=== PATIENT | male | born 1955 | race African-American/Black ===

== ENCOUNTER 2023-05-24 11:00 | Emergency (ER) | payer MEDICARE, MEDICAID, SELFPAY ==
--- NOTE | ~2023-05-24 | XR_ITS ---
EXAMINATION: XR chest 2V DATE: 05/24/2023 11:46 INDICATION: One week of cough and fever TECHNIQUE: frontal and lateral views of the chest were obtained. COMPARISON: None FINDINGS: Thin oblique linear band of discoid atelectasis/scarring in the right upper lung zone. No other airsp jorge alberto opacities, pulmonary edema, pleural effusion or pneumothorax. The cardiomediastinal silhouette is normal. IMPRESSION: 1. Linear discoid atelectasis/scarring the right upper lung zone. No other acute cardiopulmonary dise ase. Reviewed, dictated and finalized at location A. IMPRESSION: 1. Linear discoid atelectasis/scarring the right upper lung zone. No other acut e cardiopulmonary disease.
[2023-05-24 11:10] VITALS: BP 133/77; PULSE 73; RESP 20; TEMP 36.5; O2SAT 98
--- NOTE | 2023-05-24 11:10 | ED.URI ---
HPI - URI/Sore Throat General Chief Complaint: Upper Respiratory Infection Stated Complaint: FEVER/CONGESTION/COUGH Time Seen by Provider: 05/24/23 11:40 Source: patient and RN notes reviewed Mode of arrival: ambulatory Limitations: no limitations History of Present Illness HPI Narrative: 67-year-old male presents with concern for cough for 1 week. Caregiver reports he has had nasal congestion and chest congestion. Reports they have given him some [id number] medications without relief MD elicited complaint: fever and cough Related Data Home Medications Medication Instructions Recorded Confirmed clozapine 150 mg disintegrating 150 mg PO DAILY 05/24/23 05/24/23 tablet clozapine 200 mg disintegrating 200 mg PO DAILY 05/24/23 05/24/23 tablet docusate sodium 100 mg capsule 100 mg PO DIRECTED 05/24/23 05/24/23 famotidine 20 mg tablet 20 mg PO DAILY 05/24/23 05/24/23 guanfacine 2 mg tablet,extended 2 mg PO DAILY 05/24/23 05/24/23 release 24 hr oxybutynin chloride 5 mg 5 mg PO DAILY 05/24/23 05/24/23 tablet,extended release 24 hr polyethylene glycol 3350 17 17 g PO DIRECTED 05/24/23 05/24/23 gram/dose oral powder pyrithione zinc 2 % shampoo (DHS 1 applic topical DIRECTED 05/24/23 05/24/23 Zinc) sertraline 100 mg tablet 100 mg PO DIRECTED 05/24/23 05/24/23 simvastatin 40 mg tablet 40 mg PO DAILY 05/24/23 05/24/23 tamsulosin 0.4 mg capsule 0.4 mg PO DIRECTED 05/24/23 05/24/23 topiramate 100 mg tablet 100 mg PO DIRECTED 05/24/23 05/24/23 Allergies Allergy/AdvReac Type Severity Reaction Status Date / Time SELAM Inhibitors Allergy Swelling Verified 05/24/23 11:20 of Lip/Tongue/Throat lisinopril Allergy Swelling Verified 05/24/23 11:20 of Lip/Tongue/Throat Review of Systems Review of Systems: CONSTITUTIONAL: Reports malaise, fever. EYES: Denies visual changes, redness, or discharge. ENT: Reports rhinorrhea, congestion CARDIOVASCULAR: Denies chest pain, palpitations, or edema. RESPIRATORY: Reports cough. Denies dyspnea. GASTROINTESTINAL: Denies abdominal pain, nausea, vomiting, diarrhea SKIN: Denies rash or itching. MUSCULOSKELETAL: Denies myalgia. NEUROLOGIC: Denies headache. All systems reviewed & are unremarkable except as noted in HPI and below PMFSH Comments At time of signature, agree with nursing past medical, surgical, social and family history. There is no relevant family history pertinent to the presenting complaint Exam Narrative: GENERAL: Nontoxic-appearing, well-nourished, and in no acute distress. HEAD: Normocephalic EYES: PERRLA, conjunctivae clear ENT: Nares clear. Mucous membranes moist. TM pearly choi with dull light reflex bilaterally; no tragal tenderness. NECK: Supple. No lymphadenopathy CHEST: Scattered rhonchi, diminished breath sounds equal. No wheezing, rales, or stridor. No respiratory distress, speaks in full sentences. HEART: Regular rate and rhythm. No murmur heard. SKIN: Warm, dry, no rash. NEURO: Alert and oriented x3. PSYCH: Normal mood and affect Course Course Emergency Course: Patient is aware of diagnosis, understands and agrees to treatment plan. Anticipatory guidance given. Patient agrees to follow-up as directed and is aware of reasons to seek care at the emergency department. Portions of this record may have been created with voice recognition software Level of Care: Express Care Visit Vital Signs Vital signs: Reviewed. MDM - URI/Sore Throat MDM Narrative Medical decision making narrative: Differential diagnosis considered: Grimaldo virus, strep pharyngitis, allergic rhinitis, upper respiratory tract infection, sinusitis, rhinosinusitis, nasopharyngitis. viral pharyngitis, otitis media, otitis externa, pneumonia, bronchitis, viral cough syndrome, viral syndrome, and influenza. Exam findings show no acute concerns or changes; patient is non-toxic appearing and is in no distress. Patient is appropriate for
== END 2023-05-24 11:57 | disposition home or self-care (01) ==
PROVIDERS: Emergency Provider Nurse Practitioner; PCP Family Medicine
DX: J22 Unspecified acute lower respiratory infection (principal); E78.00 Pure hypercholesterolemia, unspecified; I10 Essential (primary) hypertension; I34.1 Nonrheumatic mitral (valve) prolapse; E11.9 Type 2 diabetes mellitus without complications; F79 Unspecified intellectual disabilities
CPT/HCPCS: 71046; 99213; G0463

== ENCOUNTER 2023-06-19 12:40 | Inpatient (IN) | payer MEDICARE, MEDICAID, SELFPAY ==
--- NOTE | ~2023-06-19 | XR_ITS ---
EXAMINATION: XR chest 1V DATE: 06/19/2023 16:23 INDICATION: Fall out of car. TECHNIQUE: A single frontal view of the chest was obtained. COMPARISON: Chest 2 views 05/24/2023 FINDINGS: There is bandlike scarring in right upper lobe. There is no pneumonia, pleural effusion, or pneumothorax. The heart size is normal. IMPRESSION: 1. Stable bandlike scarring in right upper lobe. Reviewed, dictated and finalized at location A.
--- NOTE | ~2023-06-19 | XR_ITS ---
EXAMINATION: XR hip RT 2V w AP pelvis DATE: 06/19/2023 16:23 INDICATION: Right hip pain. TECHNIQUE: An anteroposterior view of the pelvis and 2 views of right hip were obtained. COMPARISON: None. FINDINGS: There is a subcapital fracture of right femoral neck. The distal fracture fragment demonstr ates 6 mm lateral displacement, 2.2 cm shortening, and mild varus angulation. There is mild osteoarth ritis of the hips. There is moderate lumbar spondylosis. IMPRESSION: 1. Subcapital fracture of right femoral neck. 2. Mild osteoarthritis of the hips. Reviewed, dictated and finalized at location A.
--- NOTE | ~2023-06-19 | XR_ITS ---
EXAMINATION: XR chest 1V portable DATE: 06/23/2023 10:14 INDICATION: Coughing with food. TECHNIQUE: A single frontal view of the chest was obtained. COMPARISON: Chest single view 06/19/2023 FINDINGS: There is mild elevation of left hemidiaphragm. Again seen is mild scarring in right upper l obe. No pleural effusion or pneumothorax. The heart size is normal. IMPRESSION: 1. Mild scarring in right lung upper lobe. Reviewed, dictated and finalized at location A.
--- NOTE | ~2023-06-19 | XR_ITS ---
EXAM: XR abdomen obstructive series DATE: 06/23/2023 20:25 HISTORY: distention and pain . COMPARISON: None available. FINDINGS: Clear lung bases. Diffuse air distention and mild dilation of the large bowel. No organome otis. No abnormal abdominal calcification. Degenerative changes in the spine. Partially visualized ri ght hip arthroplasty hardware. IMPRESSION: Diffusely dilated large bowel, may represent chronic ileus. Obstruction is not excluded. Reviewed, dictated and finalized at location K. IMPRESSION: Diffusely dilated large bowel, may represent chronic ileus. Obstruc tion is not excluded.
--- NOTE | ~2023-06-19 | XR_ITS ---
XR hip RT min 2V DATE: 06/21/2023 10:00 INDICATION: ORIF right subcapital femoral neck fracture TECHNIQUE: Portable postoperative AP and crosstable lateral views of right hip COMPARISON: 06/19/2023) FINDINGS: There is resection of the right femoral head and placement of bipolar hip prosthesis which appears normally seated in the acetabular fossa. There is expected postoperative subcutaneous emphysema. IMPRESSION: Right bipolar hip replacement for subcapital femoral neck fracture Reviewed, dictated and finalized at location A.
--- NOTE | ~2023-06-19 | CT_ITS ---
EXAMINATION: CT abdomen pelvis w con DATE: 06/24/2023 13:55 INDICATION: Bowel obstruction. TECHNIQUE: Computed tomography (CT) of the abdomen and pelvis was performed with 100 mL Omnipaque 350 intravenous contrast. Automated exposure control and iterative reconstruction technique were employe d. The dose-length product was 404.87 mGy-cm. COMPARISON: None. FINDINGS: The visualized portions of the lung bases demonstrate centrilobular groundglass opacities i n right upper and lower lobes, consistent with pneumonia. There is mild atelectasis bilaterally. Ther e is a pneumatocele in right upper lobe. No pleural effusion. The heart size is normal. No pericardia l effusion. The liver, gallbladder, spleen, pancreas, adrenal glands, and kidneys are normal. There i s a large volume of stool in the colon with distention of the colon. There are multiple dilated loops of small bowel. The appendix is not visualized. There are no pathologically enlarged lymph nodes. Th ere is no free intraperitoneal fluid. There are changes of recent bipolar right hip hemiarthroplasty. There is a small volume of hematoma in the right thigh laterally. There is mild thoracic and lumbar spondylosis. There is chronic anterior wedging of T5 vertebral body. IMPRESSION: 1. Dilated small and large bowel with large volume of stool in the colon, consistent with adynamic il eus. 2. Mild right-sided pneumonia. Reviewed, dictated and finalized at location A. IMPRESSION: 1. Dilated small and large bowel with large volume of stool in the colon, consi stent with adynamic ileus. 2. Mild right-sided pneumonia.
[2023-06-19 13:05] VITALS: BP 108/66; PULSE 70; RESP 16; TEMP 36.4; O2SAT 100
--- NOTE | 2023-06-19 16:38 | ED.GENADULT ---
HPI - General Adult General Chief complaint: Fall Stated complaint: fall Time Seen by Provider: 06/19/23 15:50 History of Present Illness HPI narrative: patient is a 67-year-old male who presents ER with right hip pain. He fell out of medical transport van onto his right side. He did not strike his head. He has been unable to stand up since then. Typically ambulatory without issues. Patient accompanied by caregiver As he lives in a intermediate. Related Data Home Medications Medication Instructions Recorded Confirmed clozapine 150 mg disintegrating 150 mg PO BID 05/24/23 06/19/23 tablet clozapine 200 mg disintegrating 200 mg PO HS 05/24/23 06/19/23 tablet docusate sodium 100 mg capsule 100 mg PO BID 05/24/23 06/19/23 famotidine 20 mg tablet 20 mg PO DAILY 05/24/23 06/19/23 guanfacine 2 mg tablet,extended 2 mg PO DAILY 05/24/23 06/19/23 release 24 hr oxybutynin chloride 5 mg 5 mg PO DAILY 05/24/23 06/19/23 tablet,extended release 24 hr polyethylene glycol 3350 17 17 g PO BID 05/24/23 06/19/23 gram/dose oral powder sertraline 100 mg tablet 100 mg PO DAILY 05/24/23 06/19/23 simvastatin 40 mg tablet 40 mg PO DAILY 05/24/23 06/19/23 tamsulosin 0.4 mg capsule 0.4 mg PO DAILY 05/24/23 06/19/23 topiramate 100 mg tablet 100 mg PO BID 05/24/23 06/19/23 acetaminophen 650 mg PO Q4H PRN Pain (Scale 06/19/23 06/19/23 Score 1-3) bisacodyl 5 mg tablet,delayed 10 mg PO Q24H PRN constipation 06/19/23 06/19/23 release diphenhydramine HCl 25 mg capsule 25 mg PO TID PRN congestion 06/19/23 06/19/23 (Banophen) Allergies Allergy/AdvReac Type Severity Reaction Status Date / Time SELAM Inhibitors Allergy Swelling Verified 06/19/23 14:29 of Lip/Tongue/Throat lisinopril Allergy Swelling Verified 06/19/23 14:29 of Lip/Tongue/Throat Review of Systems Review of Systems: ROS unobtainable: Yes unobtainable due to mental status PMFSH Past Medical History Medical History (Updated 06/19/23 @ 20:00 by Jaden Moreno MD) BPH (benign prostatic hyperplasia) Cognitive developmental delay Hyperlipidemia Surgical History Surgical History (Updated 06/19/23 @ 19:59 by Jaden Moreno MD) Surgical history unknown Exam Narrative: GENERAL: Well-appearing, well-nourished, and in no acute distress. HEAD: Normocephalic, atraumatic. EYES: PERRL and EOMI. ENT: Mucous membranes moist. CHEST: Clear to auscultation. No respiratory distress. HEART: Regular rate and rhythm. Normal peripheral pulses. ABDOMEN: Soft, nontender, nondistended. EXTREMITIES: limited range of motion right lower extremity at the hip due to pain. No tenderness at the knee or ankle with normal range of motion. Normal upper extremities and left lower extremity. SKIN: Warm, dry, no rash. Abrasion right forearm. NEURO: Alert and oriented x2. PSYCH: Normal mood and affect. Course Course Emergency Course: Subcapital hip fracture, orthopedic surgery consulted, admit to the hospitalist service. Vital Signs Vital signs: Vital Signs Temperature 97.6 F 06/19/23 13:05 Pulse Rate 70 06/19/23 13:05 Respiratory Rate 16 06/19/23 13:05 Blood Pressure 108/66 06/19/23 13:05 Pulse Oximetry 100 06/19/23 13:05 Oxygen Delivery Room Air 06/19/23 13:05 Temperature 98.2 F 06/19/23 19:52 Pulse Rate 64 06/19/23 19:52 Respiratory Rate 18 06/19/23 19:52 Blood Pressure 149/80 H 06/19/23 19:52 Pulse Oximetry 100 06/19/23 19:52 Oxygen Delivery Room Air 06/19/23 13:05 Medical Decision Making Vital Signs Vital Signs: Vital Signs Temperature 97.6 F 06/19/23 13:05 Pulse Rate 70 06/19/23 13:05 Respiratory Rate 16 06/19/23 13:05 Blood Pressure 108/66 06/19/23 13:05 Pulse Oximetry 100 06/19/23 13:05 Oxygen Delivery Room Air 06/19/23 13:05 Temperature 98.2 F 06/19/23 19:52 Pulse Rate 64 06/19/23 19:52 Respiratory Rate 18 06/19/23 19:52 Blood Pressu
[2023-06-19 16:53] LABS: Basophils Percent Auto 0.1 % (0.2-1.2); Hematocrit 38.5 % (42.0-52.0); Hemoglobin 12.9 g/dL (14.0-18.0); Immature Granulocyte Absolute 0.03 K/mm3 (0.00-0.031); Immature Granulocyte Percent A 0.4 % (0-0.5); Immature Platelet Fraction Pct 3.2 % (0.9-11.2); Lymphocytes Absolute Auto 1.12 K/mm3 (0.9-3.2); Lymphocytes Percent Auto 14.8 % (18.3-44.2); Mean Corpuscular HGB Conc 33.5 g/dl (32-36); Mean Corpuscular Hemoglobin 30.8 pg (26-34); Mean Corpuscular Volume 91.9 fl (80-100); Monocytes Absolute Auto 0.4 K/mm3 (0.1-0.6); Monocytes Percent Auto 5.7 % (2.6-8.5); Platelet Count Result 120 k/mm3 (150-375); Red Blood Count 4.19 M/mm3 (4.6-6.20); Red Cell Distribution Width 14.4 % (11.5-14.5); White Blood Count 7.6 K/mm3 (4.5-10.0)
[2023-06-19 17:01] LABS: Alanine Aminotransferase 26 U/L (6-50); Albumin Level 4.1 g/dL (3.5-5.1); Alkaline Phosphatase 98 U/L (38-126); Anion Gap 4 mmol/L (4-12); Aspartate Amino Transferase 29 U/L (17-59); Bilirubin,Total 0.4 mg/dL (0.2-1.3); Blood Urea Nitrogen 20 mg/dL (9-20); Calcium 9.5 mg/dL (8.4-10.2); Carbon Dioxide 26 mmol/L (22-30); Chloride 110 mmol/L (98-107); Estimated CRCL calculation 52 ml/min; Estimated Glomerular Filt Rate > 60; Glucose 77 mg/dL (65-110); Potassium 3.6 mmol/L (3.4-5.0); Sodium 140 mmol/L (137-145)
[2023-06-19 17:04] LABS: Prothrombin Time 13.7 Seconds (11.1-14.7)
[2023-06-19 17:05] LABS: Partial Thromboplastin Time 27.9 Seconds (22.3-36.8)
[2023-06-19 17:10] VITALS: BP 128/69; PULSE 72; RESP 18; O2SAT 100
--- NOTE | 2023-06-19 17:51 | PM.IMHP ---
H&P: HPI History of Present Illness Date/Time: 06/19/23 17:51 Chief Complaint: Fall Narrative: 67-year-old male presents here with fall, right thigh pain, right elbow pain with PMH of schizophrenia, mental disability, BPH, HLD , and chronic constipation. Patient presents here for further evaluation of right elbow pain and right thigh pain s/p ground level fall. Patient reports that he was attempting to get out of a vehicle when he tripped. Patient reports that he fell onto his right side, no head strike, no loss of consciousness. Able to get up post-fall but unable to bear weight on his right leg. Endorses mild numbness to his posterior thigh without further extension with some associated weakness due to pain. No previous falls in the last 3 months. Does not utilize an assistive device regularly, does report he will occasionally use a wheelchair. Initial VS at presentation: 97.6? F, HR 70, RR 16, 108/66, and 100% on RA. ED workup showed: No leukocytosis, mild anemia with hemoglobin of 12.9, platelet count 120, no significant electrolyte derangements, creatinine 1.2 and GFR >60 (no previous available for comparison). XR of the hips/pelvis showed a subcapital fracture of the right femoral neck and mild osteoarthritis of the hips. CXR showed stable bandlike scarring in the right upper lobe. Review of Systems Review of Systems: All systems reviewed & are unremarkable except as noted in HPI and below PMFSH Past Medical History Medical History BPH (benign prostatic hyperplasia) Chronic constipation Cognitive developmental delay HTN (hypertension) Hyperlipidemia MVP (mitral valve prolapse) Schizophrenia Tardive dyskinesia Surgical History Surgical History Surgical history unknown Social History Social History Smoking status: Never smoker Alcohol intake: never Substance use: never Do You Feel Safe in your Home?: Yes Lack of Transportation: No Lack of Food: Never True Current Housing: I Have Housing Concerned About Future Housing: No Difficulty Paying Gas/Electric Bills: No Difficulty Paying for Meds: No Currently Unemployed: No Education: Don't Know Difficulty w/ Childcare or Family Care: No Spiritual care concerns: No Meds Home Medications and Allergies Home Medications Medication Instructions Recorded Confirmed Type clozapine 150 mg disintegrating 150 mg PO BID 05/24/23 06/19/23 History tablet clozapine 200 mg disintegrating 200 mg PO HS 05/24/23 06/19/23 History tablet docusate sodium 100 mg capsule 100 mg PO BID 05/24/23 06/19/23 History famotidine 20 mg tablet 20 mg PO DAILY 05/24/23 06/19/23 History guanfacine 2 mg tablet,extended 2 mg PO DAILY 05/24/23 06/19/23 History release 24 hr oxybutynin chloride 5 mg 5 mg PO DAILY 05/24/23 06/19/23 History tablet,extended release 24 hr polyethylene glycol 3350 17 17 g PO BID 05/24/23 06/19/23 History gram/dose oral powder sertraline 100 mg tablet 100 mg PO DAILY 05/24/23 06/19/23 History simvastatin 40 mg tablet 40 mg PO DAILY 05/24/23 06/19/23 History tamsulosin 0.4 mg capsule 0.4 mg PO DAILY 05/24/23 06/19/23 History topiramate 100 mg tablet 100 mg PO BID 05/24/23 06/19/23 History acetaminophen 650 mg PO Q4H PRN Pain (Scale 06/19/23 06/19/23 History Score 1-3) bisacodyl 5 mg tablet,delayed 10 mg PO Q24H PRN constipation 06/19/23 06/19/23 History release diphenhydramine HCl 25 mg capsule 25 mg PO TID PRN congestion 06/19/23 06/19/23 History (Banophen) Allergies Allergy/AdvReac Type Severity Reaction Status Date / Time SELAM Inhibitors Allergy Swelling Verified 06/19/23 20:23 of Lip/Tongue/Throat lisinopril Allergy Swelling Verified 06/19/23 20:23 of Lip/Tongue/Throat Vital Signs Vital Signs - 24 hr
[2023-06-19 18:31] VITALS: BP 117/77; PULSE 70; RESP 16; O2SAT 100
[2023-06-19 19:00] VITALS: BP 138/78; PULSE 71; RESP 17; TEMP 36.8; O2SAT 98
[2023-06-19 19:11] VITALS: BP 138/78; PULSE 71; RESP 17; TEMP 36.8; O2SAT 98
[2023-06-19 19:52] VITALS: BP 149/80; PULSE 64; RESP 18; TEMP 36.8; O2SAT 100
[2023-06-19 20:13] VITALS: BMI 21.6
--- NOTE | 2023-06-19 20:17 | ADMGEN ---
This patient, Edu Bro, was admitted to 3 [facility] Surg Room 327-01. Patient/family oriented to hospital policies and general routines including ID bracelet, bed and alarms, visiting hours, pain management, procedures, bathroom and other care routines, personal items, smoking policy, room service/diet, and visiting hours. Information on how to activate the Rapid Response Team has been discussed. Patient/Family are encouraged to report perceived risks to care and to ask questions if they do not understand what they are told or what they should do.
[2023-06-19] MEDS: DOCUSATE SODIUM 100 MG CAPSULE PO (21:08)
[2023-06-19] MEDS: SODIUM CHLORIDE 0.9% IV 1,000 ML 125 ML IV CONT (21:08)
[2023-06-20] MEDS: SODIUM CHLORIDE 0.9% IV 1,000 ML 125 ML IV CONT ×2 (05:14→14:03)
[2023-06-20 05:50] VITALS: BP 114/64; PULSE 64; RESP 18; TEMP 36.7; O2SAT 100
[2023-06-20 06:02] LABS: Hematocrit 35.7 % (42.0-52.0); Hemoglobin 12.1 g/dL (14.0-18.0); Immature Platelet Fraction Pct 2.8 % (0.9-11.2); Mean Corpuscular HGB Conc 33.9 g/dl (32-36); Mean Corpuscular Volume 91.5 fl (80-100); Mean Platelet Volume 10.7 fl (7.4-10.4); Platelet Count Result 108 k/mm3 (150-375); Red Cell Distribution Width 14.2 % (11.5-14.5); White Blood Count 7.1 K/mm3 (4.5-10.0)
[2023-06-20 06:13] LABS: Anion Gap 3 mmol/L (4-12); Blood Urea Nitrogen 20 mg/dL (9-20); Calcium 8.7 mg/dL (8.4-10.2); Carbon Dioxide 23 mmol/L (22-30); Chloride 115 mmol/L (98-107); Estimated CRCL calculation 53 ml/min; Estimated Glomerular Filt Rate > 60; Glucose 144 mg/dL (65-110); Potassium 3.7 mmol/L (3.4-5.0); Sodium 141 mmol/L (137-145)
[2023-06-20] MEDS: polyethylene glycoL 3350 17 GM POWD.PACK PO (09:47)
[2023-06-20] MEDS: oxyBUTYnin CHLORIDE XL 5 MG TAB.ER.24 PO (09:48)
[2023-06-20] MEDS: DOCUSATE SODIUM 100 MG CAPSULE PO ×2 (09:49→20:37)
[2023-06-20] MEDS: TAMSULOSIN HCL 0.4 MG CAPSULE PO (09:49)
[2023-06-20] MEDS: TOPIRAMATE 100 MG TABLET PO ×2 (09:49→20:37)
[2023-06-20] MEDS: SIMVASTATIN 20 MG TABLET 40 MG PO (09:49)
[2023-06-20] MEDS: SERTRALINE HCL 50 MG TABLET 100 MG PO (09:49)
[2023-06-20] MEDS: FAMOTIDINE 20 MG TABLET PO (09:49)
[2023-06-20] MEDS: ACETAMINOPHEN 325 MG TABLET 650 MG PO (09:54)
--- NOTE | 2023-06-20 10:06 | PM.IMPN ---
Progress Note: A&P Assessment and Plan (1) Subcapital fracture of neck of right femur: Code(s): S72.011A - Unspecified intracapsular fracture of right femur, initial encounter for closed fracture Status: Acute Assessment and Plan: - XR hip/pelvis: 1. Subcapital fracture of right femoral neck. 2. Mild osteoarthritis of the hips. - CXR: 1. Stable bandlike scarring in right upper lobe. - ortho consulted, awaiting recs - bedrest - neurovasc checks - QShift - SCDs - regular diet, NPO at midnight - pain management: tylenol, hydrocodone, morphine - antiemetic prn - monitor labs in AM - CBC and BMP - bowel regimen: docusate SHE, polyethylene glycol - maintenance fluids: NS 125 mL/hr (2) Schizophrenia: Code(s): F20.9 - Schizophrenia, unspecified Status: Acute Assessment and Plan: - no auditory or visual hallucinations on exam, patient cooperative - continue home medications Plan Patient here s/p ground level fall, initially complaining of right hip pain and right elbow pain. Found to have a subcapital fracture of the right femoral neck. Ortho consulted. NPO at midnight. Continue pain control. Diet: Regular, NPO midnight GI Prophylaxis: famotidine p.o. DVT Prophylaxis: SCDs Lines: Peripheral Code Status: Full code Time Spent With Patient Time with patient: 15 - 25 minutes Subjective Date/time seen: 06/20/23 10:06 Interval history: 67-year-old male presents here with fall, right thigh pain, right elbow pain with PMH of? schizophrenia, mental disability, BPH, HLD , and chronic constipation. Patient presents here for further evaluation of right elbow pain and right thigh pain s/p ground level fall.? Patient reports that he was attempting to get out of a vehicle when he tripped.? Patient reports that he fell onto his right side, no head strike, no loss of consciousness.? Able to get up post-fall but unable to bear weight on his right leg.? Endorses mild numbness to his posterior thigh without further extension with some associated weakness due to pain.? No previous falls in the last 3 months.? Does not utilize an assistive device regularly, does report he will occasionally use a wheelchair. Initial VS at presentation:? 97.6? F, HR 70, RR 16, 108/66, and 100% on RA. ED workup showed:? No leukocytosis, mild anemia with hemoglobin of 12.9, platelet count 120, no significant electrolyte derangements, creatinine 1.2 and GFR >60 (no previous available for comparison).? XR of the hips/pelvis showed a subcapital fracture of the right femoral neck and mild osteoarthritis of the hips.? CXR showed stable bandlike scarring in the right upper lobe. Review of Systems Review of Systems: All systems reviewed & are unremarkable except as noted in HPI and below Exam Narrative: no numbness on exam. slightly weaker plantar flexion v upward flexion. tenderness over R hip. heart and lungs fine. A/Ox4. abdomen rounded but soft. Const: General: comfortable and no acute distress Other: , male, nontoxic appearance HENMT: Face/Nose/Sinus: Normal nares present Mouth: Yes moist mucous membranes Eyes: General: appearance normal, both eyes and all related structures Sclera: sclerae normal Pupils: Equal, round and reactive pupils present EOM: EOMs intact bilaterally Resp: Effort & Inspection: normal respiratory effort Auscultation: clear to auscultation bilaterally Cardio: Rate: regular rate Rhythm: regular rhythm Other: S1-S2 present without murmur, rub, ectopy GI: Other: distended, soft, nontender, normoactive bowel sounds in all quadrants Back/Spine/Pelvis: Other: tenderness over right hip Skin: General skin exam: no rashes or lesions noted Wounds: no wounds Neuro: Cranial nerves: Yes Equal, round and reactive pupils present Speech: normal speech Sensory Exam: normal sensation Other: RLE- slightly weak plantar flexion and strong kwasi
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
[2023-06-20 14:00] VITALS: BP 130/69; PULSE 60; RESP 18; TEMP 36.8; O2SAT 100
[2023-06-20 20:00] VITALS: PULSE 62; RESP 16; O2SAT 100
[2023-06-20 20:53] VITALS: BP 123/66; PULSE 62; RESP 16; TEMP 37; O2SAT 100
[2023-06-21] VITALS (13 sets, daily range): BP systolic 95–132; BP diastolic 54–69; PULSE 59–73; RESP 14–20; TEMP 36.1–36.6; O2SAT 97–100
--- NOTE | 2023-06-21 07:46 | WPDANESEPP ---
Anes - Eval Pre Procedure Procedure: Operation Date: 06/21/23 08:00 Proposed Procedures p Right Sherly - Ludin Franco MD Date/Time: 06/21/23 07:46 Surgeon: estevan Pre Op Diagnosis: Subcapital Hip Fracture Patient Data Age: 67 Gender: M Height: 1.75 m Weight: 66.4 kg Last Vital Signs Temp 36.6 C 06/21/23 05:12 Pulse 66 06/21/23 05:12 Resp 16 06/21/23 05:12 BP 125/54 L 06/21/23 05:12 Pulse Ox 98 06/21/23 05:12 O2 Del Method Room Air 06/20/23 20:00 Allergies Allergy/AdvReac Type Severity Reaction Status Date / Time SELAM Inhibitors Allergy Swelling Verified 06/19/23 20:23 of Lip/Tongue/Throat lisinopril Allergy Swelling Verified 06/19/23 20:23 of Lip/Tongue/Throat Home Medications Medication Instructions Recorded Confirmed Type clozapine 150 mg disintegrating 150 mg PO BID 05/24/23 06/19/23 History tablet clozapine 200 mg disintegrating 200 mg PO HS 05/24/23 06/19/23 History tablet docusate sodium 100 mg capsule 100 mg PO BID 05/24/23 06/19/23 History famotidine 20 mg tablet 20 mg PO DAILY 05/24/23 06/19/23 History guanfacine 2 mg tablet,extended 2 mg PO DAILY 05/24/23 06/19/23 History release 24 hr oxybutynin chloride 5 mg 5 mg PO DAILY 05/24/23 06/19/23 History tablet,extended release 24 hr polyethylene glycol 3350 17 17 g PO BID 05/24/23 06/19/23 History gram/dose oral powder sertraline 100 mg tablet 100 mg PO DAILY 05/24/23 06/19/23 History simvastatin 40 mg tablet 40 mg PO DAILY 05/24/23 06/19/23 History tamsulosin 0.4 mg capsule 0.4 mg PO DAILY 05/24/23 06/19/23 History topiramate 100 mg tablet 100 mg PO BID 05/24/23 06/19/23 History acetaminophen 650 mg PO Q4H PRN Pain (Scale 06/19/23 06/19/23 History Score 1-3) bisacodyl 5 mg tablet,delayed 10 mg PO Q24H PRN constipation 06/19/23 06/19/23 History release diphenhydramine HCl 25 mg capsule 25 mg PO TID PRN congestion 06/19/23 06/19/23 History (Banophen) Laboratory Tests 06/20/23 12:13 Blood Type O Positive Antibody Screen Negative Patient hx anesthesia problems: none Family hx anesthesia problems: none Results Review: All pre-operative results and documents have been reviewed as part of the pre-operative evaluation. [facility] Past Medical History Medical History BPH (benign prostatic hyperplasia) Chronic constipation Cognitive developmental delay HTN (hypertension) Hyperlipidemia MVP (mitral valve prolapse) Schizophrenia Tardive dyskinesia Surgical History Surgical History Surgical history unknown Social History Social History Smoking status: Never smoker Alcohol intake: never Substance use: never Do You Feel Safe in your Home?: Yes Lack of Transportation: No Lack of Food: Never True Current Housing: I Have Housing Concerned About Future Housing: No Difficulty Paying Gas/Electric Bills: No Difficulty Paying for Meds: No Currently Unemployed: No Education: Don't Know Difficulty w/ Childcare or Family Care: No Spiritual care concerns: No Exam Day of Procedure 06/21/23 07:46 Patient weight: normal Heart: regular rate and rhythm Lungs: decreased breath sounds Airway: Mallampati scale class 1 Neurological: alert and oriented
--- NOTE | 2023-06-21 07:53 | WPDHPUPDATE1 ---
History and Physical Update Update Date/Time: 06/21/23 07:53 History and Physical has been reviewed, including an updated exam of the patient. There are NO changes in the patient's condition. Risks, benefits, and alternatives have been discussed and questions answered. Patient agrees to proceed with procedure.
--- NOTE | 2023-06-21 07:55 | P.PNAN_ITS ---
Anes - Eval Final PreProcedure Day of Procedure 06/21/23 07:55 Patient weight: normal Heart: regular rate and rhythm Lungs: clear to auscultation Airway: Mallampati scale class 1 Neurological: alert and oriented Last oral intake: >/= 8 hours ASA classification: III Emergent: no Anesthetic plan: proceed Anesthesia type and monitoring: general ETT and standard monitoring Results Review: All pre-operative results and documents have been reviewed as part of the pre- operative evaluation. Informed Consent: The patient's anesthetic plan and its attendant risks and benefits were discussed with the patient/family/POA. Questions were solicited and answers provided to the satisfaction of the patient/family/POA.
[2023-06-21] MEDS: ceFAZolin 2 GM/D5W 50 ML 2 GM/50 ML BAG IVPB ×3 (08:00→23:13)
[2023-06-21] MEDS: TRANEXAMIC ACID 1,000MG/ISO100 1,000 MG/100 ML BAG 200 MG IVPB (08:00)
[2023-06-21] MEDS: LACTATED RINGERS 1,000 ML 30 ML IV CONT (08:20)
[2023-06-21] MEDS: SODIUM CHLORIDE 0.9% IV 37.7 ML, MORPHINE SULFATE INJ (*CRX) 2 MG, ROPivacaine HCL 1% 2... INFILTRATE (08:22)
--- NOTE | 2023-06-21 09:20 | W.PM.PROC2 ---
Procedure Note - Detailed Date of Procedure 06/21/23 Pre-op Diagnosis Subcapital Femoral neck fracture right hip Post-op Diagnosis Same Procedure Performed Bipolar hemiarthroplasty right hip. Surgeon Ludin Franco MD Software Maintenance Engineer Kavya Osman PA-C Anesthesia General Findings Satisfactory bone quality. Moderate contracture bilaterally. Sizing matched preoperative templating. Description of Procedure A general anesthetic was administered. The patient was carefully placed in the lateral decubitus position on the peg board positioner. An axillary roll was placed. The hip was prepped and draped in the usual sterile fashion. A minimally invasive optimized posterior approach to the hip was performed. An L shaped capsulotomy was created along the upper border of the piriformis. The short external rotators were tagged with number 2 high strength suture for later repair. The labrum was preserved. The femoral neck cut was performed. The femoral head was removed and sized. The acetabular floor was cleared of debris and loose tissue. The femur was sequentially broached. Trial was assessed for leg length and stability. The real component was impacted into position, trialed again, and the final head and bipolar component were assembled. The hip was reduced after copious irrigation. The short external rotators and capsule were repaired through drill holes in the posterior trochanter. The wound was closed in layers with 1 vicryl, 2,0, and 2-0 running barbed suture. Adhesive tapes were placed on the skin, followed by a sterile gauze dressing. The patient was extubated and brought to the recovery room. Implants Arnulfo Accolate 2 hip stem 127 degree, size 6, UH are bipolar component outer diameter size 50, inner metal ball size 28 mm +0. Estimated Blood Loss 200 Urine Output 500 Drains No Pathology None sent Complications No immediate complications Condition Stable Disposition PACU [facility] Billing Surgery - Charge Forward: Surgery Billing
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
[2023-06-21] MEDS: ACETAMINOPHEN 325 MG TABLET 650 MG PO ×3 (11:40→23:13)
[2023-06-21] MEDS: SERTRALINE HCL 50 MG TABLET 100 MG PO (11:40)
[2023-06-21] MEDS: polyethylene glycoL 3350 17 GM POWD.PACK PO ×2 (11:40→17:07)
[2023-06-21] MEDS: TAMSULOSIN HCL 0.4 MG CAPSULE PO (11:40)
[2023-06-21] MEDS: SIMVASTATIN 20 MG TABLET 40 MG PO (11:40)
[2023-06-21] MEDS: oxyBUTYnin CHLORIDE XL 5 MG TAB.ER.24 PO (11:40)
[2023-06-21] MEDS: TOPIRAMATE 100 MG TABLET PO ×2 (11:40→20:37)
[2023-06-21] MEDS: ASPIRIN 81 MG ENTERIC TABLET PO (17:07)
[2023-06-21] MEDS: SENNA/DOCUSATE SODIUM TABLET 2 TAB PO (17:07)
--- NOTE | 2023-06-21 17:29 | PHAR ---
The patient's home meds of Guanfacine ER 2mg, Clozapine 150mg, and Clozapine 200mg have been verified.
[2023-06-21] MEDS: FAMOTIDINE 20 MG TABLET PO (20:37)
[2023-06-22 04:08] VITALS: BP 105/57; PULSE 72; RESP 16; TEMP 36.1; O2SAT 99
[2023-06-22] MEDS: ACETAMINOPHEN 325 MG TABLET 650 MG PO ×3 (06:05→17:18)
[2023-06-22 06:07] LABS: Basophils Percent Auto 0.1 % (0.2-1.2); Hematocrit 36.9 % (42.0-52.0); Hemoglobin 11.4 g/dL (14.0-18.0); Immature Granulocyte Absolute 0.02 K/mm3 (0.00-0.031); Immature Granulocyte Percent A 0.3 % (0-0.5); Immature Platelet Fraction Pct 3.2 % (0.9-11.2); Lymphocytes Percent Auto 12.9 % (18.3-44.2); Mean Corpuscular HGB Conc 30.9 g/dl (32-36); Mean Corpuscular Hemoglobin 30.5 pg (26-34); Mean Corpuscular Volume 98.7 fl (80-100); Mean Platelet Volume 11.4 fl (7.4-10.4); Monocytes Absolute Auto 0.5 K/mm3 (0.1-0.6); Monocytes Percent Auto 6.2 % (2.6-8.5); Neutrophils Absolute Auto 6.3 K/mm3 (1.3-6.7); Neutrophils Percent Auto 80.5 % (45.5-73.1); Platelet Count Result 100 k/mm3 (150-375); Red Blood Count 3.74 M/mm3 (4.6-6.20); Red Cell Distribution Width 14.5 % (11.5-14.5); White Blood Count 7.8 K/mm3 (4.5-10.0)
[2023-06-22 06:17] LABS: Anion Gap 5 mmol/L (4-12); Blood Urea Nitrogen 15 mg/dL (9-20); Calcium 8.4 mg/dL (8.4-10.2); Carbon Dioxide 19 mmol/L (22-30); Chloride 115 mmol/L (98-107); Estimated CRCL calculation 64 ml/min; Estimated Glomerular Filt Rate > 60; Glucose 127 mg/dL (65-110); Potassium 4.1 mmol/L (3.4-5.0); Sodium 139 mmol/L (137-145)
[2023-06-22 08:34] VITALS: O2SAT 99
--- NOTE | 2023-06-22 08:44 | PM.IMPN ---
Progress Note: A&P Assessment and Plan (1) Subcapital fracture of neck of right femur: Code(s): S72.011A - Unspecified intracapsular fracture of right femur, initial encounter for closed fracture Status: Acute Assessment and Plan: -Bipolar hemiarthroplasty right hip procedure 06/20 - pain control, neuro checks SCD, hip precautions per ortho recom - PT eval 06/20 (2) Schizophrenia: Code(s): F20.9 - Schizophrenia, unspecified Status: Acute Assessment and Plan: - no auditory or visual hallucinations on exam, patient cooperative - continue home medications Plan Patient here s/p ground level fall, initially complaining of right hip pain and right elbow pain. Found to have a subcapital fracture of the right femoral neck- repaired 06/21/23 Continue pain control. PT/OT Diet: Regular GI Prophylaxis: famotidine p.o. DVT Prophylaxis: SCDs Lines: Peripheral Code Status: Full code Time Spent With Patient Time with patient: less than 15 minutes Subjective Date/time seen: 06/22/23 08:44 Interval history: 67-year-old male presents here with fall, right thigh pain, right elbow pain with PMH of? schizophrenia, mental disability, BPH, HLD , and chronic constipation. Patient presents here for further evaluation of right elbow pain and right thigh pain s/p ground level fall.? Patient reports that he was attempting to get out of a vehicle when he tripped.? Patient reports that he fell onto his right side, no head strike, no loss of consciousness.? Able to get up post-fall but unable to bear weight on his right leg.? Endorses mild numbness to his posterior thigh without further extension with some associated weakness due to pain.? No previous falls in the last 3 months.? Does not utilize an assistive device regularly, does report he will occasionally use a wheelchair. XR of the hips/pelvis showed a subcapital fracture of the right femoral neck and mild osteoarthritis of the hips.? CXR showed stable bandlike scarring in the right upper lobe. 06/21/23- Bipolar hemiarthroplasty right hip performed. examined at the bedside- still somewhat drowsy but appropriate. NO complains of pain. 06/22/23- examined today- voices no complains. pain is well controleld, eating and drinking ok, workign with PT/OT. dressing is C/D/I Review of Systems Review of Systems: All systems reviewed & are unremarkable except as noted in HPI and below Exam Narrative: no numbness on exam. slightly weaker plantar flexion v upward flexion. tenderness over R hip. heart and lungs fine. A/Ox4. abdomen rounded but soft. Const: General: comfortable and no acute distress Other: , male, nontoxic appearance HENMT: Face/Nose/Sinus: Normal nares present Mouth: Yes moist mucous membranes Eyes: General: appearance normal, both eyes and all related structures Sclera: sclerae normal Pupils: Equal, round and reactive pupils present EOM: EOMs intact bilaterally Resp: Effort & Inspection: normal respiratory effort Auscultation: clear to auscultation bilaterally Cardio: Rate: regular rate Rhythm: regular rhythm Other: S1-S2 present without murmur, rub, ectopy GI: Other: distended, soft, nontender, normoactive bowel sounds in all quadrants Back/Spine/Pelvis: Other: tenderness over right hip Skin: General skin exam: no rashes or lesions noted Wounds: no wounds Neuro: Cranial nerves: Yes Equal, round and reactive pupils present Speech: normal speech Sensory Exam: normal sensation Other: RLE- slightly weak plantar flexion and strong dorsiflexion. +5 in all other extremities. No numbness to RLE on exam Extrem: General: normal to inspection Other: DP pulses intact bilaterally Psych: Other: fair to poor insight judgment, pleasant Objective Data Vital Signs Vital Signs: Vital Signs - 24 hr 06/21/23 09:24 06/21/23 09:35 06/21/23 09:45 Temperature 97.5 F L
[2023-06-22] MEDS: SERTRALINE HCL 50 MG TABLET 100 MG PO (09:42)
[2023-06-22] MEDS: oxyBUTYnin CHLORIDE XL 5 MG TAB.ER.24 PO (09:43)
[2023-06-22] MEDS: TOPIRAMATE 100 MG TABLET PO ×2 (09:43→21:37)
[2023-06-22] MEDS: SIMVASTATIN 20 MG TABLET 40 MG PO (09:43)
[2023-06-22] MEDS: FAMOTIDINE 20 MG TABLET PO ×2 (09:43→21:37)
[2023-06-22] MEDS: polyethylene glycoL 3350 17 GM POWD.PACK PO ×2 (09:43→17:19)
[2023-06-22] MEDS: TAMSULOSIN HCL 0.4 MG CAPSULE PO (09:43)
[2023-06-22] MEDS: SENNA/DOCUSATE SODIUM TABLET 2 TAB PO ×2 (09:43→17:25)
[2023-06-22] MEDS: ASPIRIN 81 MG ENTERIC TABLET PO ×2 (10:23→17:25)
[2023-06-22 11:14] VITALS: BP 112/64; PULSE 76; RESP 17; TEMP 36.9; O2SAT 100
[2023-06-22] MEDS: ceFAZolin 2 GM/D5W 50 ML 2 GM/50 ML BAG IVPB (13:24)
[2023-06-22] MEDS: ENOXAPARIN 30 MG/0.3 ML SYRINGE SUB-Q (17:18)
[2023-06-22 20:07] VITALS: BP 136/69; PULSE 84; RESP 18; TEMP 37.1; O2SAT 99
[2023-06-23] MEDS: ACETAMINOPHEN 325 MG TABLET 650 MG PO ×4 (00:39→17:01)
[2023-06-23 05:23] VITALS: BP 133/66; PULSE 102; RESP 20; TEMP 37; O2SAT 94
[2023-06-23] MEDS: ENOXAPARIN 30 MG/0.3 ML SYRINGE SUB-Q ×2 (06:28→17:01)
[2023-06-23 08:00] VITALS: O2SAT 96
--- NOTE | 2023-06-23 08:42 | PCOTNOTE ---
The patient treatment was not able to be completed. Patient was eating at the time. Will plan to continue treatment per plan of care.
[2023-06-23] MEDS: ASPIRIN 81 MG ENTERIC TABLET PO ×2 (08:46→16:42)
[2023-06-23] MEDS: FAMOTIDINE 20 MG TABLET PO ×2 (08:46→20:30)
[2023-06-23] MEDS: SENNA/DOCUSATE SODIUM TABLET 2 TAB PO ×2 (08:46→16:42)
[2023-06-23] MEDS: TOPIRAMATE 100 MG TABLET PO ×2 (08:47→20:30)
[2023-06-23] MEDS: TAMSULOSIN HCL 0.4 MG CAPSULE PO (08:47)
[2023-06-23] MEDS: SERTRALINE HCL 50 MG TABLET 100 MG PO (08:47)
[2023-06-23] MEDS: SIMVASTATIN 20 MG TABLET 40 MG PO (08:47)
[2023-06-23] MEDS: oxyBUTYnin CHLORIDE XL 5 MG TAB.ER.24 PO (08:55)
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
[2023-06-23 09:17] VITALS: BP 109/58; PULSE 110; RESP 22; TEMP 37.7; O2SAT 96
--- NOTE | 2023-06-23 09:40 | PM.IMPN ---
Progress Note: A&P Assessment and Plan (1) Subcapital fracture of neck of right femur: Code(s): S72.011A - Unspecified intracapsular fracture of right femur, initial encounter for closed fracture Status: Acute Assessment and Plan: -Bipolar hemiarthroplasty right hip procedure 06/20 - pain control, neuro checks - pulses present, skin is warm, color wnl SCD, hip precautions per ortho recom - PT eval 06/20 - SCD - added lovenox yesterday for DVT prophylaxis (2) Schizophrenia: Code(s): F20.9 - Schizophrenia, unspecified Status: Acute Assessment and Plan: - no auditory or visual hallucinations on exam, patient cooperative - continue home medications- clozapine Plan Patient here s/p ground level fall, initially complaining of right hip pain and right elbow pain. Found to have a subcapital fracture of the right femoral neck- repaired 06/21/23 Continue pain control. PT/OT became somewhat confused tbis am per nurse report. Slight tachy, rr 22, low grade fever, cough with breakfast. Will do blood cultures, ua/culture, chest xray. hold diet for now- bedside eval per nursing if pt is ok to eat. Diet: Regular GI Prophylaxis: famotidine p.o. DVT Prophylaxis: SCDs- lovenox was ordered 06/21 Lines: Peripheral Code Status: Full code Time Spent With Patient Time with patient: less than 15 minutes Subjective Date/time seen: 06/23/23 09:40 Interval history: 67-year-old male presents here with fall, right thigh pain, right elbow pain with PMH of? schizophrenia, mental disability, BPH, HLD , and chronic constipation. Patient presents here for further evaluation of right elbow pain and right thigh pain s/p ground level fall.? Patient reports that he was attempting to get out of a vehicle when he tripped.? Patient reports that he fell onto his right side, no head strike, no loss of consciousness.? Able to get up post-fall but unable to bear weight on his right leg.? Endorses mild numbness to his posterior thigh without further extension with some associated weakness due to pain.? No previous falls in the last 3 months.? Does not utilize an assistive device regularly, does report he will occasionally use a wheelchair. XR of the hips/pelvis showed a subcapital fracture of the right femoral neck and mild osteoarthritis of the hips.? CXR showed stable bandlike scarring in the right upper lobe. 06/21/23- Bipolar hemiarthroplasty right hip performed. examined at the bedside- still somewhat drowsy but appropriate. NO complains of pain. 06/22/23- examined today- voices no complains. pain is well controlled, eating and drinking ok, working with PT/OT. dressing is C/D/I 06/22- per nursing report- pt seems a bit confused this am. Was able to take medication but coughed with food. low grade fever, tachy. Chest xray, blood, urine cultures ordered, labs - cbc, cmp, lactic. pt is seen and examined at the bedside. PT is drowsy but awakens easily. Answers questions appropriately, follows commands. Denies any pain. Bed alarm is on, pt has call light available. SCD ordered. Dressing to rt leg is c/d/i, no erythema noted Review of Systems Review of Systems: All systems reviewed & are unremarkable except as noted in HPI and below Exam Narrative: no numbness on exam. slightly weaker plantar flexion v upward flexion. tenderness over R hip. heart and lungs fine. A/Ox4. abdomen rounded but soft. Const: General: comfortable and no acute distress Other: , male, nontoxic appearance, drowsy but appropriate and easily awaken HENMT: Face/Nose/Sinus: Normal nares present Mouth: Yes moist mucous membranes Eyes: General: appearance normal, both eyes and all related structures Sclera: sclerae normal Pupils: Equal, round and reactive pupils present EOM: EOMs intact bilaterally Resp: Effort & Inspection: normal respiratory effort Auscultation: clear to auscultation bilaterally Cardio: Rate: regular rate Rhythm:
--- NOTE | 2023-06-23 09:56 | PCOTNOTE ---
Attempted to see Patient at the time. Patient is awake and speaking at this time. Patient verbalized he has had a busy and bad day this morning. Patient refused to participate in any activity at this time. Per RN, Patient has some testing coming in and would not cooperate this A.M. with tasks. Will check back at a later time.
[2023-06-23] MEDS: SODIUM CHLORIDE 0.9% IV 1,000 ML 100 ML IV CONT ×2 (10:16→20:30)
[2023-06-23 10:24] LABS: Hematocrit 32.2 % (42.0-52.0); Hemoglobin 10.9 g/dL (14.0-18.0); Immature Platelet Fraction Pct 2.7 % (0.9-11.2); Mean Corpuscular HGB Conc 33.9 g/dl (32-36); Mean Corpuscular Hemoglobin 30.4 pg (26-34); Mean Corpuscular Volume 89.7 fl (80-100); Mean Platelet Volume 10.9 fl (7.4-10.4); Platelet Count Result 127 k/mm3 (150-375); Red Blood Count 3.59 M/mm3 (4.6-6.20); White Blood Count 6.8 K/mm3 (4.5-10.0)
[2023-06-23 10:43] LABS: Alanine Aminotransferase 49 U/L (6-50); Albumin Level 3.4 g/dL (3.5-5.1); Alkaline Phosphatase 93 U/L (38-126); Anion Gap 4 mmol/L (4-12); Aspartate Amino Transferase 73 U/L (17-59); Bilirubin,Total 0.7 mg/dL (0.2-1.3); Blood Urea Nitrogen 14 mg/dL (9-20); Calcium 8.8 mg/dL (8.4-10.2); Carbon Dioxide 22 mmol/L (22-30); Chloride 110 mmol/L (98-107); Estimated CRCL calculation 58 ml/min; Estimated Glomerular Filt Rate > 60; Glucose 212 mg/dL (65-110); Lactic Acid Reflex 1.3 mmol/L (0.7-2.0); Potassium 3.6 mmol/L (3.4-5.0); Sodium 136 mmol/L (137-145)
[2023-06-23 15:03] VITALS: BP 126/68; PULSE 86; RESP 26; TEMP 37.6; O2SAT 100
--- NOTE | 2023-06-23 15:43 | PM.PNORT ---
Progress Note: A&P Assessment and Plan (1) Subcapital fracture of neck of right femur: Code(s): S72.011A - Unspecified intracapsular fracture of right femur, initial encounter for closed fracture Status: Acute Assessment and Plan: POD #2 Bipolar hemiarthroplasty. Patient tolerated procedure well. No complications. Pain manageable with pain medication. No numbness or tingling. Patient will likely require SNF or Rehab at discharge. He is working with formal physical therapy. Complaining of ABD pain today. Discussed this with the patient's nurse. Okay for discharge from orthopedic standpoint once medically cleared. Ortho instructions: D/C to SNF/rehab Xray and follow up in office in 4 weeks. Wound Care: Remove Mepilex dressing at 7 days post op. Remove steristrips at 14 days post op. May shower. No soaking. PT: Weight bearing as tolerated with a walker. DVT prophylaxis: ASA BID 2 weeks. Pain medication: Tylenol. Subjective Subjective Date/Time Seen: 06/23/23 15:43 Interval history: Patient resting comfortably. Patient states he does not have pain in his hip. Mild discomfort in his calf. No numbness or tingling. Complains of some ABD pain. He has passed gas and had a bowel movement yesterday. No other complaints. Review of Systems Review of Systems: All systems reviewed & are unremarkable except as noted in HPI and below Exam Narrative: Thin 67 y/o male. Cognitive delay. Patient is alert. Resting comfortably in bed. No acute distress. No erythema or ecchymosis. No rashes or lesions noted. Warm, normal appearing skin. Tenderness at right hip. Dressing dry and intact without drainage. Calf minimally tender. Thigh soft and non-tender. No distal edema. Distal pulses palpable. Normal capillary refill. Patient able to move and wiggle toes. Light touch sensation intact. Objective Data Vital Signs Vital Signs: Vital Signs - 24 hr 06/22/23 20:07 06/23/23 05:23 06/23/23 09:17 Temperature 98.7 F 98.6 F 99.8 F H Pulse Rate 84 102 H 110 H Respiratory Rate 18 20 22 H Blood Pressure 136/69 133/66 109/58 L Pulse Oximetry 99 94 96 Oxygen Delivery 06/23/23 08:00 06/23/23 15:03 Temperature 99.6 F Pulse Rate 86 Respiratory Rate 26 H Blood Pressure 126/68 Pulse Oximetry 96 100 Oxygen Delivery Room Air Intake/Output Intake/Output: Intake & Output 06/20/23 06/21/23 06/22/23 06/23/23 23:59 23:59 23:59 23:59 Intake Total 5660 1970 4502 240 Output Total 3750 2800 2700 725 Balance 1910 -830 1802 -485 Meds/Results Medications: Active Medications Generic Name Dose Route Start Last Admin Trade Name Freq PRN Reason Stop Dose Admin Acetaminophen 650 mg 06/21/23 12:00 06/23/23 11:48 Acetaminophen 325 Mg Tablet PO 650 mg Q6HR SHE Administration Aspirin 81 mg 06/21/23 17:00 06/23/23 08:46 Aspirin 81 Mg Enteric Tablet PO 81 mg BID SHE Administration Bisacodyl 10 mg 06/19/23 22:57 Bisacodyl 5 Mg Tablet Ec PO Q24H PRN constipation Diphenhydramine HCl 25 mg 06/19/23 22:57 Diphenhydramine Hcl Cap 25 Mg Capsule PO TID PRN congestion Enoxaparin Sodium 30 mg 06/22/23 18:00 06/23/23 06:28 Enoxaparin 30 Mg/0.3 Ml Syringe SUB-Q 30 mg Q12H SEH Administration Famotidine 20 mg 06/21/23 21:00 06/23/23 08:46 Famotidine 20 Mg Tablet PO 20 mg Q12HR SHE Administration Ibuprofen 800 mg in 200 mls @ 400 mls/hr 06/21/23 09:28 Caldolor 800 Mg/200 Ml IVPB Q6H PRN Breakthrough Pain Rated 1-3 or NPO Sodium Chloride 1,000 mls @ 100 mls/hr 06/23/23 09:40 06/23/23 10:16 Normal Saline Iv IV CONT 100 mls/hr .Q10H SHE Administration Naloxone HCl 0.1 mg 06/21/23 09:28 Naloxone Hcl 0.4 Mg/Ml Vial IV PUSH Q2M PRN Opiate Reversal Nonform Clozapine 0 mg 06/21/23 17:00 06/23/23 06:23 150 Mg Tablet, PO 07/21/23 16:59 150 mg Disintegrating BID@0700,1700 FORMERLY [facility], [facility]–1983 Adm
[2023-06-23] MEDS: polyethylene glycoL 3350 17 GM POWD.PACK PO (16:42)
--- NOTE | 2023-06-23 17:32 | PC.NURSE ---
Dr Salgado notified of patients abd more distended from previous assessment.
[2023-06-23 20:13] VITALS: BP 138/69; PULSE 97; RESP 19; TEMP 36.4; O2SAT 98
[2023-06-24] MEDS: ACETAMINOPHEN 325 MG TABLET 650 MG PO ×4 (00:32→17:53)
[2023-06-24 05:25] VITALS: BP 129/78; PULSE 75; RESP 18; TEMP 36.2; O2SAT 98
[2023-06-24] MEDS: SODIUM CHLORIDE 0.9% IV 1,000 ML 100 ML IV CONT ×2 (05:41→18:22)
[2023-06-24] MEDS: ENOXAPARIN 30 MG/0.3 ML SYRINGE SUB-Q ×2 (05:42→18:36)
[2023-06-24 08:00] VITALS: O2SAT 98
--- NOTE | 2023-06-24 08:28 | PM.PNORT ---
Progress Note: A&P Assessment and Plan (1) Subcapital fracture of neck of right femur: Qualifiers: Encounter type: subsequent encounter Fracture type: closed Fracture healing: with routine healing Qualified Code(s): S72.011D - Unspecified intracapsular fracture of right femur, subsequent encounter for closed fracture with routine healing Code(s): S72.011A - Unspecified intracapsular fracture of right femur, initial encounter for closed fracture Status: Acute Assessment and Plan: POD #3 Bipolar hemiarthroplasty. No changes in care plan from orthopedic standpoint. Encourage him to get up and walk with the walker. Okay for discharge once medially cleared. Patient does have a distended bowel today. Pain is manageable with tylenol. Limit narcotics due to bowel issues. No numbness or tingling. Patient will likely require SNF or Rehab at discharge. He is working with formal physical therapy. Ortho instructions: D/C to SNF/rehab Xray and follow up in office in 4 weeks. Wound Care: Remove Mepilex dressing at 7 days post op. Remove steristrips at 14 days post op. May shower. No soaking. PT: Weight bearing as tolerated with a walker. DVT prophylaxis: ASA BID 2 weeks. Pain medication: Tylenol. Subjective Subjective Date/Time Seen: 06/24/23 08:28 Interval history: Patient complaining of abdominal pain. He is hungry and wants to eat. He states he has not been passing gas like he has been. No pain in the hip. No distal numbness or tingling. He has been able to get up with therapy. Per the nurse he is becoming increasingly upset and confused. Review of Systems Review of Systems: All systems reviewed & are unremarkable except as noted in HPI and below Exam Narrative: Thin 67 y/o male. Cognitive delay. Patient is alert. Resting comfortably in bed. Abdomen distended. No acute distress. No erythema or ecchymosis. No rashes or lesions noted. Warm, normal appearing skin. Tenderness at right hip. Dressing dry and intact without drainage. Calf minimally tender. Thigh soft and non-tender. No distal edema. Distal pulses palpable. Normal capillary refill. Patient able to move and wiggle toes. Light touch sensation intact. Objective Data Vital Signs Vital Signs: Vital Signs - 24 hr 06/23/23 09:17 06/23/23 15:03 06/23/23 20:13 Temperature 99.8 F H 99.6 F 97.6 F Pulse Rate 110 H 86 97 Respiratory Rate 22 H 26 H 19 Blood Pressure 109/58 L 126/68 138/69 Pulse Oximetry 96 100 98 06/24/23 05:25 Temperature 97.2 F L Pulse Rate 75 Respiratory Rate 18 Blood Pressure 129/78 Pulse Oximetry 98 Intake/Output Intake/Output: Intake & Output 06/21/23 06/22/23 06/23/23 06/24/23 23:59 23:59 23:59 23:59 Intake Total 1970 4502 1480 918.3 Output Total 2800 2700 725 800 Balance -830 1802 755 118.3 Meds/Results Medications: Active Medications Generic Name Dose Route Start Last Admin Trade Name Freq PRN Reason Stop Dose Admin Acetaminophen 650 mg 06/21/23 12:00 06/24/23 05:41 Acetaminophen 325 Mg Tablet PO 650 mg Q6HR SHE Administration Aspirin 81 mg 06/21/23 17:00 06/23/23 16:42 Aspirin 81 Mg Enteric Tablet PO 81 mg BID SHE Administration Bisacodyl 10 mg 06/19/23 22:57 Bisacodyl 5 Mg Tablet Ec PO Q24H PRN constipation Diphenhydramine HCl 25 mg 06/19/23 22:57 Diphenhydramine Hcl Cap 25 Mg Capsule PO TID PRN congestion Enoxaparin Sodium 30 mg 06/22/23 18:00 06/24/23 05:42 Enoxaparin 30 Mg/0.3 Ml Syringe SUB-Q 30 mg Q12H SHE Administration Famotidine 20 mg 06/21/23 21:00 06/23/23 20:30 Famotidine 20 Mg Tablet PO 20 mg Q12HR SHE Administration Ibuprofen 800 mg in 200 mls @ 400 mls/hr 06/21/23 09:28 Caldolor 800 Mg/200 Ml IVPB Q6H PRN Breakthrough Pain Rated 1-3 or NPO Sodium Chloride 1,000 mls @ 100 mls/hr 06/23/23 09:40 06/24/23 05:41 Normal Saline Iv IV CONT 100
[2023-06-24] MEDS: SIMVASTATIN 20 MG TABLET 40 MG PO (09:45)
[2023-06-24] MEDS: BISACODYL 5 MG TABLET EC 10 MG PO (09:45)
[2023-06-24] MEDS: TAMSULOSIN HCL 0.4 MG CAPSULE PO (09:45)
[2023-06-24] MEDS: SERTRALINE HCL 50 MG TABLET 100 MG PO (09:45)
[2023-06-24] MEDS: TOPIRAMATE 100 MG TABLET PO ×2 (09:46→20:58)
[2023-06-24] MEDS: oxyBUTYnin CHLORIDE XL 5 MG TAB.ER.24 PO (09:46)
[2023-06-24] MEDS: ASPIRIN 81 MG ENTERIC TABLET PO ×2 (09:46→16:36)
[2023-06-24] MEDS: SENNA/DOCUSATE SODIUM TABLET 2 TAB PO ×2 (09:46→16:36)
[2023-06-24] MEDS: FAMOTIDINE 20 MG TABLET PO ×2 (09:46→20:58)
[2023-06-24] MEDS: polyethylene glycoL 3350 17 GM POWD.PACK PO ×2 (09:46→16:36)
--- NOTE | 2023-06-24 09:53 | PM.IMPN ---
Progress Note: A&P Assessment and Plan (1) Subcapital fracture of neck of right femur: Qualifiers: Encounter type: subsequent encounter Fracture healing: with routine healing Fracture type: closed Qualified Code(s): S72.011D - Unspecified intracapsular fracture of right femur, subsequent encounter for closed fracture with routine healing Code(s): S72.011A - Unspecified intracapsular fracture of right femur, initial encounter for closed fracture Status: Acute Assessment and Plan: -Bipolar hemiarthroplasty right hip procedure 06/20 - pain control, neuro checks - pulses present, skin is warm, color wnl SCD, hip precautions per ortho recom - PT eval 06/20 - SCD - added lovenox DVT prophylaxis Ortho instructions: D/C to SNF/rehab Xray and follow up in office in 4 weeks. Wound Care:? Remove Mepilex dressing at 7 days post op. Remove steristrips at 14 days post op. May shower. No soaking. PT: Weight bearing as tolerated with a walker. DVT prophylaxis: ASA BID 2 weeks. Pain medication: Tylenol.? (2) Schizophrenia: Code(s): F20.9 - Schizophrenia, unspecified Status: Acute Assessment and Plan: - no auditory or visual hallucinations on exam, patient cooperative - continue home medications- clozapine Plan Patient here s/p ground level fall, initially complaining of right hip pain and right elbow pain. Found to have a subcapital fracture of the right femoral neck- repaired 06/21/23 Continue pain control. PT/OT became somewhat confused tbis am per nurse report. Slight tachy, rr 22, low grade fever, cough with breakfast. Will do blood cultures, ua/culture, chest xray. KUB, abd cat scan today to r/o obstruction Diet: npo FOR NO2- meds ok with sips GI Prophylaxis: famotidine p.o. DVT Prophylaxis: SCDs- lovenox was ordered 06/21 Lines: Peripheral Code Status: Full code Time Spent With Patient Time with patient: less than 15 minutes Subjective Date/time seen: 06/24/23 09:53 Interval history: last night-06/22- abd distention- pain. KUB completed- MPRESSION: Diffusely dilated large bowel, may represent chronic ileus. Obstruction is not excluded. He had not been taking any narcotics for pain -will continue with tylenol prn. CT abd ordered to r/o obstruction. - if abd distention improves and pt is having BMs- anticipate rehab discharge tomorrow, 06/24 Review of Systems Review of Systems: All systems reviewed & are unremarkable except as noted in HPI and below Exam Narrative: no numbness on exam. slightly weaker plantar flexion v upward flexion. tenderness over R hip. heart and lungs fine. A/Ox4. abdomen rounded but soft. Const: General: comfortable and no acute distress Other: , male, nontoxic appearance, alert today, pleasant HENMT: Face/Nose/Sinus: Normal nares present Mouth: Yes moist mucous membranes Eyes: General: appearance normal, both eyes and all related structures Sclera: sclerae normal Pupils: Equal, round and reactive pupils present EOM: EOMs intact bilaterally Resp: Effort & Inspection: normal respiratory effort Auscultation: clear to auscultation bilaterally Cardio: Rate: regular rate Rhythm: regular rhythm Other: S1-S2 present without murmur, rub, ectopy GI: Other: distended, soft, nontender, normoactive bowel sounds in all quadrants Back/Spine/Pelvis: Other: tenderness over right hip Skin: General skin exam: no rashes or lesions noted Wounds: no wounds Neuro: Cranial nerves: Yes Equal, round and reactive pupils present Speech: normal speech Sensory Exam: normal sensation Other: RLE- slightly weak plantar flexion and strong dorsiflexion. +5 in all other extremities. No numbness to RLE on exam Extrem: General: normal to inspection Other: DP pulses intact bilaterally Psych: Other: fair to poor insight judgment, pleasant Objective Data Vital Signs Vital
[2023-06-24 14:00] VITALS: BP 116/68; PULSE 81; RESP 20; TEMP 36.5; O2SAT 98
[2023-06-24] MEDS: BISACODYL 10 MG SUPPOSITORY RECTAL (16:36)
--- NOTE | 2023-06-24 16:49 | PC.NURSE ---
home medication from patient closet administered and medications returned to closet. closet locked
[2023-06-24] MEDS: METOCLOPRAMIDE HCL INJ 10 MG/2 ML VIAL IV PUSH (17:55)
[2023-06-24 20:59] VITALS: BP 127/87; PULSE 93; RESP 20; TEMP 36.7; O2SAT 100
[2023-06-25] MEDS: METOCLOPRAMIDE HCL INJ 10 MG/2 ML VIAL IV PUSH ×3 (00:24→17:07)
[2023-06-25] MEDS: ACETAMINOPHEN 325 MG TABLET 650 MG PO ×4 (00:24→17:07)
[2023-06-25] MEDS: SODIUM CHLORIDE 0.9% IV 1,000 ML 100 ML IV CONT (04:44)
[2023-06-25 05:34] VITALS: BP 142/75; PULSE 79; RESP 20; TEMP 36.5; O2SAT 100
[2023-06-25] MEDS: ENOXAPARIN 30 MG/0.3 ML SYRINGE SUB-Q ×2 (05:45→17:07)
--- NOTE | 2023-06-25 08:13 | PM.PNORT ---
Progress Note: A&P Assessment and Plan (1) Subcapital fracture of neck of right femur: Qualifiers: Encounter type: subsequent encounter Fracture healing: with routine healing Fracture type: closed Qualified Code(s): S72.011D - Unspecified intracapsular fracture of right femur, subsequent encounter for closed fracture with routine healing Code(s): S72.011A - Unspecified intracapsular fracture of right femur, initial encounter for closed fracture Status: Acute Assessment and Plan: POD #4 Bipolar hemiarthroplasty. No changes in care plan from orthopedic standpoint. Encourage him to get up and walk with the walker. Okay for discharge once medially cleared. Abdomen is less distended and only minimally uncomfortable today. He states he has been having bowel movements. Asking for snacks. Pain is manageable with tylenol. Limit narcotics due to bowel issues. No numbness or tingling. Patient will likely require SNF or Rehab at discharge. He is working with formal physical therapy. Discharge planning in progress. Ortho instructions: D/C to SNF/rehab Xray and follow up in office in 4 weeks. Wound Care: Remove Mepilex dressing at 7 days post op. Remove steristrips at 14 days post op. May shower. No soaking. PT: Weight bearing as tolerated with a walker. DVT prophylaxis: ASA BID 2 weeks. Pain medication: Tylenol. Subjective Subjective Date/Time Seen: 06/25/23 08:13 Interval history: Patient resting comfortably. Asking for snacks. Notes no pain at the hip. Minimal discomfort in his stomach. Mild discomfort in his thigh and calf. No numbness or tingling. He states he did have a couple bowel movements yesterday. Review of Systems Review of Systems: All systems reviewed & are unremarkable except as noted in HPI and below Exam Narrative: Thin 67 y/o male. Cognitive delay. Patient is alert. Resting comfortably in bed. Abdomen less distended today and soft. Minimal tenderness. No acute distress. No erythema or ecchymosis. No rashes or lesions noted. Warm, normal appearing skin. Mild Tenderness at right hip. Dressing dry and intact without drainage. Calf minimally tender. Thigh soft and minimally tender. No distal edema. Distal pulses palpable. Normal capillary refill. Patient able to move and wiggle toes. Light touch sensation intact. Objective Data Vital Signs Vital Signs: Vital Signs - 24 hr 06/24/23 14:00 06/24/23 20:59 06/25/23 05:34 Temperature 97.7 F 98.1 F 97.7 F Pulse Rate 81 93 79 Respiratory Rate 20 20 20 Blood Pressure 116/68 127/87 142/75 H Pulse Oximetry 98 100 100 Intake/Output Intake/Output: Intake & Output 06/22/23 06/23/23 06/24/23 06/25/23 23:59 23:59 23:59 23:59 Intake Total 4502 1480 2398.3 1000 Output Total 2700 725 1475 300 Balance 1802 755 923.3 700 Meds/Results Medications: Active Medications Generic Name Dose Route Start Last Admin Trade Name Freq PRN Reason Stop Dose Admin Acetaminophen 650 mg 06/21/23 12:00 06/25/23 05:47 Acetaminophen 325 Mg Tablet PO 650 mg Q6HR SHE Administration Aspirin 81 mg 06/21/23 17:00 06/24/23 16:36 Aspirin 81 Mg Enteric Tablet PO 81 mg BID SHE Administration Bisacodyl 10 mg 06/19/23 22:57 06/24/23 09:45 Bisacodyl 5 Mg Tablet Ec PO 10 mg Q24H PRN Administration constipation Bisacodyl 10 mg 06/24/23 08:41 06/24/23 16:36 Bisacodyl 10 Mg Suppository RECTAL 10 mg QAM PRN Administration Constipation Diphenhydramine HCl 25 mg 06/19/23 22:57 Diphenhydramine Hcl Cap 25 Mg Capsule PO TID PRN congestion Enoxaparin Sodium 30 mg 06/22/23 18:00 06/25/23 05:45 Enoxaparin 30 Mg/0.3 Ml Syringe SUB-Q 30 mg Q12H SHE Administration Famotidine 20 mg 06/21/23 21:00 06/24/23 20:58 Famotidine 20 Mg Tablet PO 20 mg Q12HR SHE Administration Ibuprofen 800 mg in 200 mls @ 400 mls/hr 06/21/23 09:28 Caldolor 800 Mg/200
--- NOTE | 2023-06-25 08:35 | PCOTNOTE ---
Attempted to see Patient at this time. Patient declined, stated, sleeping . Will check back at a later time.
[2023-06-25 09:20] VITALS: O2SAT 100
[2023-06-25] MEDS: SERTRALINE HCL 50 MG TABLET 100 MG PO (09:20)
[2023-06-25] MEDS: SENNA/DOCUSATE SODIUM TABLET 2 TAB PO (09:20)
[2023-06-25] MEDS: ASPIRIN 81 MG ENTERIC TABLET PO (09:20)
[2023-06-25] MEDS: TOPIRAMATE 100 MG TABLET PO (09:20)
[2023-06-25] MEDS: TAMSULOSIN HCL 0.4 MG CAPSULE PO (09:20)
[2023-06-25] MEDS: FAMOTIDINE 20 MG TABLET PO (09:20)
[2023-06-25] MEDS: SIMVASTATIN 20 MG TABLET 40 MG PO (09:20)
[2023-06-25] MEDS: oxyBUTYnin CHLORIDE XL 5 MG TAB.ER.24 PO (09:20)
[2023-06-25] MEDS: LACTULOSE 20 GM/30 ML UDC PO (09:21)
[2023-06-25 10:27] LABS: Hematocrit 29.7 % (42.0-52.0); Hemoglobin 9.9 g/dL (14.0-18.0); Mean Corpuscular HGB Conc 33.3 g/dl (32-36); Mean Corpuscular Hemoglobin 30.2 pg (26-34); Mean Corpuscular Volume 90.5 fl (80-100); Mean Platelet Volume 10.3 fl (7.4-10.4); Platelet Count Result 147 k/mm3 (150-375); Red Blood Count 3.28 M/mm3 (4.6-6.20); Red Cell Distribution Width 14.5 % (11.5-14.5); White Blood Count 7.3 K/mm3 (4.5-10.0)
[2023-06-25 10:38] LABS: Alanine Aminotransferase 43 U/L (6-50); Alkaline Phosphatase 89 U/L (38-126); Anion Gap 5 mmol/L (4-12); Aspartate Amino Transferase 56 U/L (17-59); Bilirubin,Total 0.9 mg/dL (0.2-1.3); Blood Urea Nitrogen 14 mg/dL (9-20); Calcium 8.7 mg/dL (8.4-10.2); Carbon Dioxide 22 mmol/L (22-30); Chloride 118 mmol/L (98-107); Estimated CRCL calculation 64 ml/min; Estimated Glomerular Filt Rate > 60; Glucose 115 mg/dL (65-110); Potassium 4.2 mmol/L (3.4-5.0); Sodium 145 mmol/L (137-145)
--- NOTE | 2023-06-25 14:02 | PCNWS ---
Weekly nutritional screen. Patient is tolerating current diet with adequate intake. No weight loss reported. Pt currently has ileus but is improving. Intakes 50-100% on previous. No nutritional needs at this time.
[2023-06-25 14:05] VITALS: BP 129/68; PULSE 77; RESP 20; TEMP 36.9; O2SAT 96
--- NOTE | 2023-06-25 15:41 | PM.DS ---
DS: Admitting Diagnosis Discharge Date 06/25/2023 Admitting Diagnosis Intracapsular fracture of the right femur DS: Discharge Diagnosis Discharge Diagnosis (1) Subcapital fracture of neck of right femur: Qualifiers: Encounter type: subsequent encounter Fracture healing: with routine healing Fracture type: closed Qualified Code(s): S72.011D - Unspecified intracapsular fracture of right femur, subsequent encounter for closed fracture with routine healing Code(s): S72.011A - Unspecified intracapsular fracture of right femur, initial encounter for closed fracture Status: Acute Assessment and Plan: -Bipolar hemiarthroplasty right hip procedure 06/20 - pain control, neuro checks - pulses present, skin is warm, color wnl SCD, hip precautions per ortho recom - PT eval 06/20 - SCD - added lovenox DVT prophylaxis Ortho instructions: D/C to SNF/rehab Xray and follow up in office in 4 weeks. Wound Care:? Remove Mepilex dressing at 7 days post op. Remove steristrips at 14 days post op. May shower. No soaking. PT: Weight bearing as tolerated with a walker. DVT prophylaxis: ASA BID 2 weeks. Pain medication: Tylenol.? (2) Schizophrenia: Code(s): F20.9 - Schizophrenia, unspecified Status: Acute Assessment and Plan: - no auditory or visual hallucinations on exam, patient cooperative - continue home medications- clozapine DS: Summary Hospital Course Reason for hospitalization: Intracapsular fracture the right femur Hospital Course: Admission: Medical Record 67-year-old male presents here with fall, right thigh pain, right elbow pain with PMH of? schizophrenia, mental disability, BPH, HLD , and chronic constipation. Patient presents here for further evaluation of right elbow pain and right thigh pain s/p ground level fall.? Patient reports that he was attempting to get out of a vehicle when he tripped.? Patient reports that he fell onto his right side, no head strike, no loss of consciousness.? Able to get up post-fall but unable to bear weight on his right leg.? Endorses mild numbness to his posterior thigh without further extension with some associated weakness due to pain.? No previous falls in the last 3 months.? Does not utilize an assistive device regularly, does report he will occasionally use a wheelchair. Initial VS at presentation:? 97.6? F, HR 70, RR 16, 108/66, and 100% on RA. ED workup showed:? No leukocytosis, mild anemia with hemoglobin of 12.9, platelet count 120, no significant electrolyte derangements, creatinine 1.2 and GFR >60 (no previous available for comparison).? XR of the hips/pelvis showed a subcapital fracture of the right femoral neck and mild osteoarthritis of the hips.? CXR showed stable bandlike scarring in the right upper lobe. 06/21/23- Bipolar hemiarthroplasty right hip performed. examined at the bedside- still somewhat drowsy but appropriate. NO complains of pain. 06/22/23- examined today- voices no complains. pain is well controlled, eating and drinking ok, working with PT/OT. dressing is C/D/I 06/22- per nursing report- pt seems a bit confused this am. Was able to take medication but coughed with food. low grade fever, tachy.? Chest xray, blood, urine cultures ordered, labs - cbc, cmp, lactic. pt is seen and examined at the bedside.? PT is drowsy but awakens easily. Answers questions appropriately, follows commands. Denies any pain. Bed alarm is on, pt has call light available. SCD ordered. Dressing to rt leg is c/d/i, no erythema noted. 06/23: Patient alert with no acute distress some ABD distention, CT ordered and given bowel prep 06/24: DISCHARGED Patient doing well with no acute distress, ABD soft non-tender and reported BM over night CT had shown a chronic ileus patient reports history of this. Patient working with PT/OT and was discharged to SNF facility for continued rehab. Status at Discharge Overall status at discharge: patient is progres
[2023-06-25 16:47] LABS: Influenza A QL RT-PCR Negative (Negative); Influenza B QL RT-PCR Negative (Negative); RSV RNA, RT-PCR Negative (Negative); SARS-CoV-2 RNA PCR Negative (Negative)
== END 2023-06-25 18:00 | DRG 522 ==
LOC: ANHED 16:56 → ANH3MEDSUR 17:54
PROVIDERS: Nurse Practitioner; Orthopaedic Surgery; Physician Assistant Surgical; Student in an Organized Health Care Education/Training Program; Admitting Provider Hospitalist; Emergency Provider Emergency Medicine; PCP Internal Medicine; Visit Provider Nurse Practitioner Family
PROC: 0SRR01A Replacement of Right Hip Joint, Femoral Surface with Metal Synthetic Substitute, Uncemented, Open Approach (ICD-10-PCS; CPT 27125; principal; 2023-06-21 08:00)
DX: S72.031A Displaced midcervical fracture of right femur, initial encounter for closed fracture (principal); W17.89XA Other fall from one level to another, initial encounter; N40.0 Benign prostatic hyperplasia without lower urinary tract symptoms; E78.5 Hyperlipidemia, unspecified; I10 Essential (primary) hypertension; F20.9 Schizophrenia, unspecified; K59.00 Constipation, unspecified; Z11.52 Encounter for screening for COVID-19
CPT/HCPCS: 36415; 71045; 73502; 74019; 74177; 80048; 80053; 83605; 85025; 85027; 85055; 85610; 85730; 86850; 86900; 86901; 87040; 87086; 87637; 97110; 97116; 97162; 97165; 97530; 97535; 99285; A9270; C1776; G0378; J0171; J0690; J1100; J1650; J1885; J2270; J2405; J2704; J2765; J2795; J3010; J7030; J7120; Q9967